=== PATIENT | female | born 1965 | race Caucasian/White ===

== ENCOUNTER 2018-02-18 06:50 | Day surgery (SDC) | payer BC ==
[~2018-02-18] VITALS: Ht 176.5 cm; Wt 81.6 kg
[~2018-02-18 06:50] MED LIST: CALCIUM 500 MG1 EACH PO; CENTRUM SILVER1 EAC4 PO; DULERA 200 MCG/13 GM IH; FLONASE16 G1 BOTH NARES; LEVO-T88 MCG PO; VITAMIN D34000 UNIT PO; ZOCOR20 MG PO; ZYRTEC10 M3 PO
== END 2018-02-18 09:35 | disposition home or self-care (01) ==
LOC: PAIN 06:50 → SDC 07:15 → PAIN 07:15
DX: G97.1 Other reaction to spinal and lumbar puncture (principal); F41.9 Anxiety disorder, unspecified; H53.8 Other visual disturbances
CPT/HCPCS: J2250